=== PATIENT | female | born 1975 | race Caucasian/White ===

== ENCOUNTER 2019-11-03 10:31 | Outpatient (CLI) | payer OTHER, SELFPAY ==
--- NOTE | 2019-11-03 10:38 | US_ITS ---
WS: [id number] ULTRASOUND PELVIS TECHNIQUE: Transabdominal. CLINICAL INFORMATION: PELVIC PAIN LMP: ? : No. COMPARISON: None. FINDINGS: Uterus Orientation: Anteverted. Size: 9.24 cm x 4.9 cm x 4.0 cm Masses: None. Cervix: Appears normal Endometrium: Small amount of fluid in the endometrial canal. Endometrium otherwise normal. Endometrium thickness: 1.3 cm. Adnexa: Complex hemorrhagic cyst right ovary. Multi- follicular ovaries bilaterally. Right ovary size: 5.5 cm x 3.0 cm x 2.5 cm. Right ovary volume: 21.4 ccm3 Left ovary size: 3.7 cm x 2.0 cm x 1.5 cm. Left ovary volume: 5.7 ccm3 Free fluid: None. Other findings: None. US/US pelvic complete* [id number] IMPRESSION: 1. Small amount of fluid in the endometrium. Endometrium is otherwise normal i n appearance and measures 13 mm. 2. Hemorrhagic right ovarian cyst measuring 2.0 x 1.6 x 2.1CM. This can be fol lowed up in one to 2 menstrual cycles. 3. Multiple physiologic follicles left ovary. 4. No free fluid in the cul-de-sac.
== END 2019-11-03 10:32 | disposition home or self-care (01) ==
LOC: US 10:33
PROVIDERS: Family Provider Family Medicine; PCP Family Medicine; Visit Provider Nurse Practitioner Family
DX: R10.2 Pelvic and perineal pain (principal); N83.201 Unspecified ovarian cyst, right side
CPT/HCPCS: 76856

== ENCOUNTER 2025-01-07 15:12 | Emergency (ER) | payer OTHER, SELFPAY ==
--- OUTSIDE RECORDS SUMMARY | 2023-08-05 04:00 | XMS_ITS ---
Author Organization [facility] Address [address] [place] [address] Support Name Relationship Address , Manfred Colon Emergency Contact Unknow n Unavailable KAYE GEE Guarantor Unknown [phone] Care Team Providers Care Mill Recorder Name Role Phone Armida Hartley DO Primary Care Provider Jacky Nayak Unavailable [phone] Migration, Provider Unavailable Unavailable REASON FOR VISIT EMR-Harpreet Vital Signs Height 64.00 in 08/05/2023 Weight 150.00 lbs 08/05/2023 BMI 26 kg/m2 08/05/2023 Height-cm 162.56 cm 08/05/2023 Weight-kg 68.18 kg 08/05/2023 Encounters Encounter Location Date Provider Diagnosis Migrated_Facility 0 0 08/05/2023 Provider Migration Chronic pain syndrome G89.4 ; Other spondylosis, lumbosacral region M47.897 ; Other intervertebral disc degeneration, lumbar region M51.36 ; Radiculopathy, lumbar region M54.16 and Unspecified abnormalities of gait and mobility R26.9 Assessments Encounter Date Diagnosis (ICD Code) Assessment Notes Treatment Notes Treatment Clinical Notes Section Notes 08/05/2023 Chronic pain syndrome (ICD-10 - G89.4) 08/05/2023 Other spondylosis, lumbosacral region (ICD-10 - M47.897) 08/05/2023 Other intervertebral disc degeneration, lumbar region (ICD-10 - M51.36) 08/05/2023 Radiculopathy, lumbar region (ICD-10 - M54.16) 08/05/2023 Unspecified abnormalities of gait and mobility (ICD-10 - R26.9) Plan Of Treatment No Information Progress Notes * SANDEEP GEE:1975 ( 49 yo F)Acc No.[id number]:08/05/2023 Patient: KAYE COTTO Provider: Reece mckeonmelodie Migration :1975 A ge:47 Y S ex:Female Date:08/05/2023 Address:[address] [place] [address], [id number] Pcp:Armida Hartley DO Subjective: * Chief Complaints: * E MR-Harpreet Objective: * Vitals: H t: 64.00 in, Wt: 150.00 lbs, Wt-k.18 kg, BMI: 26 Index, Ht-cm: 162.56 cm. Assessment: * Assessment: 1. C hronic pain syndrome - G89.4 2 . O ther spondylosis, lumbosacral region - M47.897 3 . O ther intervertebral disc degeneration, lumbar region - M51.36? 4. R adiculopathy, lumbar region - M54.16 5 . U nspecified abnormalities of gait and mobility - R26.9 Billing Information: * Visit Code: 88945 Office Visit, Est Pt., Level 3. * Electronic signature of Prov ider Migration on 01/07/2025 at 03:18 PM CDT Sign off status: Pending * Provider: Reece blanton Migration Date: 08/05/2023 Generated for Karson tinajero/Bear/Carl on: 0 01/07/2025 03:18 PM CDT
--- OUTSIDE RECORDS SUMMARY | 2024-03-14 04:00 | XMS_ITS ---
Author Organization [facility] Address [address] [place] [address] Support Name Relationship Address , Manfred Colon Emergency Contact Unknow n Unavailable KAYE GEE Guarantor Unknown [phone] Care Team Providers Care Benefits Analyst Name Role Phone Armida Hartley DO Primary Care Provider Jacky Nayak Unavailable [phone] Migration, Provider Unavailable Unavailable REASON FOR VISIT EMR-Harpreet Encounters Encounter Location Date Provider Diagnosis Migrated_Facility 0 0 03/14/2024 Provider Migration Plan Of Treatment No Information Progress Notes * MARCIAL GEEOB:1975 ( 49 yo F)Acc No.[id number]:03/14/2024 Patient: Abelino JOELKAYE :1975 A ge:48 Y S ex:Female Address:[address] [place] [address], [place] [address] Subjective: * Chief Complaints: * E MR-Harpreet * * Date:
--- OUTSIDE RECORDS SUMMARY | 2024-03-15 04:00 | XMS_ITS ---
Author Organization [facility] Address [address] [place] [address] Support Name Relationship Address , Manfred Colon Emergency Contact Unknow n Unavailable KAYE GEE Guarantor Unknown [phone] Care Team Providers Care Shelf Drier Operator Name Role Phone Armida Hartley DO Primary Care Provider Jacky Nayak Unavailable [phone] Migration, Provider Unavailable Unavailable Allergies Allergen (clinical drug ingredient) Drug/Non Drug Allergy documented on EMR Reaction Allergy Type Onset Date Status aspirin Aspirin Unknown Drug Allergy Active Latex Latex Unknown Allergy Active REASON FOR VISIT EMR-[facility]reet Medications Medication SIG (Take, Route, Frequency, Duration) Notes Start Date End Date Status pyridoxine (vitamin B6) *[facility] and Interaction Alert[facility]* Active Acyclovir *Pick strength-f orm from [facility] for eRX* Active Chewable Iron *Pick strength-f orm from [facility] for eRX* Active Collagen Skin Renewal *Pick stre ngth-form from [facility] for eRX* Active ALPRAZolam *Pick strength-f orm from [facility] for eRX* Active Zinc Citrate *Pick strength-f orm from [facility] for eRX* Active Methocarbamol *Pick strength-f orm from [facility] for eRX* Active [place] 3-6-9 *Pick strength-f orm from [facility] for eRX* Active Social History Social History Additional Details Category Social Info Options Details Migrated Social History Migrated Social History Alcoholic beverages? - Yes, Applying for disability? - No, Drug or substance abuse? - No, exposure to toxins/poisonous substances at work - No, If yes, frequency of alcoholic beverages - less than 1 drink per week., Marital Status - , Nonprescription drug use? - Yes, Participation in detoxification or rehabilitation - No, Smoking - No, Working currently? - Yes Encounters Encounter Location Date Provider Diagnosis Migrated_Facility 0 0 03/15/2024 Provider Migration Plan Of Treatment No Information Progress Notes * MARCIAL GEEOB:1975 ( 49 yo F)Acc No.[id number]:03/15/2024 Patient: KAYE COTTO :1975 A ge:48 Y S ex:Female Address:[address] [place] [address], [place] [address] Subjective: * Chief Complaints: * E MR-Harpreet * Medical History: Asthma, B ronchitis, H eadache, * Surgical History: adenoid removal bilateral tubal ligation Hysterectomy tubes in ears * Family History: M igrated Family History: : Cancer, C hronic pain, D iabetes, D rug addiction, H eart disease. * Social History: M igrated Social History: M igrated Social History: Alcoholic beverages? - Yes, A pplying for disability? - No, D rug or substance abuse? - No, e xposure to toxins/poisonous substances at work - No, I f yes, frequency of alcoholic beverages - less than 1 drink per week., M arital Status - , N onprescription drug use? - Yes, P articipation in detoxification or rehabilitation - No, S moking - No, W orking currently? - Yes. * Medications: T akingChewable Iron , Notes to Pharmacist: *Pick strength-form from [facility] for eRX*Methocarbamol , Notes to Pharmacist: *Pick strength-form from [facility] for eRX*ALPRAZolam , Notes to Pharmacist: *Pick strength-form from [facility] for eRX*[place] 3-6-9 , Notes to Pharmacist: *Pick strength-form from [facility] for eRX*Zinc Citrate , Notes to Pharmacist: *Pick strength-form from [facility] for eRX*pyridoxine (vitamin B6) , Notes to Pharmacist: *Reorder from [facility] for eRx and Interaction Alerts*Collagen Skin Renewal , Notes to Pharmacist: *Pick strength-form from [facility] for eRX*Acyclovir , Notes to Pharmacist: *Pick strength-form from [facility] for eRX*Taking Chewable Iron , Notes to Pharmacist: *Pick strength-form from [facility] for eRX*Taking Methocarbamol , Notes to Pharmacist: *Pick strength-form from [facility] for eRX*Taking ALPRAZolam , Notes to Pharmacist: *Pick strength-form from [facility] for eRX*Taking [place] 3-6-9 , Notes to Pharmacist: *Pick strength-form from [facility] for eRX*Taking Zinc Citrate , Notes to Pharmacist: *Pick strength-form from [facility] for eRX*Taking pyridoxine (vitamin B6) , Notes to Pharmacist: *Reorder from [facility] for eRx and Interaction Alerts*Taking Collagen Skin Renewal , Notes to Pharmacist: *Pick strength-form from [facility] for eRX*Taking Acyclovir , Notes to Pharmacist: *Pick strength-form from [facility] for eRX* * Allergies: L atex: AllergyAspirin: Allergy * * Date:
[2025-01-07] VITALS (7 sets, daily range): BP systolic 129–158; BP diastolic 79–117; PULSE 83–102; RESP 17–18; TEMP 38; O2SAT 97–99; BMI 27.4
--- OUTSIDE RECORDS SUMMARY | 2025-01-07 15:17 | XMS_ITS | Encounter Summary ---
Author Organization [facility] Address [address] [place] [address] Care Team Providers Care Kindergarten Tutor Name Role Phone Armida Hartley DO Primary Care Provider [phone] Reason for Visit * Reason Comments Provider Call Encounter Details Date Type Department Care Team (Late st Contact Info) Description 01/04/2025 Telephone [facility] [place] [address] [place] [phone] NaeemArmida asif DO [address] [place] [address] Provider Call Social History Tobacco Use Types Packs/Day Years Used Date Smoking Tobacco: Never Passive Smoke Exposure: Never Smokeless Tobacco: Never Alcohol Use Standard Drinks/Week Comments Yes 0 (1 standard drink = 0.6 oz pur e alcohol) once in awhile Comments No Sex and Gender Information Value Date Recorded Sex Assigned at Not on file Legal Sex Female 1:11 PM CDT Gender Identity Not on file Sexual Orientation Not on file documented as of this encounter Miscellaneous Notes * Telephone Encounter - Peterson Bennett - 01/05/2025 9:07 AM CDT Copied from [facility] #[id number]. Topic: [id number] Call >> Jan 05, 2025 9:06 AM Peterson Garces wrote: Caller is requesting to speak with Clinical Care Team. Caller Name: Karthik mckeon/ [facility] (Other) Callback Number: [phone] Is the caller a Physician, Nurse Practitioner or Physician Electrical Assembly Technician? No Call Notes: Daneer states that they have tried reaching out to the patient regarding an MRI Cervical Spine and have been unable to reach her. He wanted to verify with the care team if anyone has beenable to reach her regarding this. Is this addressing an immediate patient care need? No * Telephone Encounter - Kat Marcum LPN - 01/05/2025 8:25 AM CDT Faxed. Kat Marcum LPN, 01/05/2025 8:26 AM * Telephone Encounter - Danny Barclay - 01/04/2025 10:48 AM CDT Copied from [facility] #[id number]. Topic: [id number] Call >> Jan 04, 2025 10:47 AM Danny Mena wrote: Caller is requesting to speak with Clinical Care Team. Caller Name: karthik- [facility] Callback Number: [phone] Is the caller a Physician, Nurse Practitioner or Physician Electrical Assembly Technician? No Call Notes: needing MRI of spine without contrast- can we fax this order to [phone] Is this addressing an immediate patient care need? No documented in this encounter Plan of Treatment Upcoming Encounters Date Type Department Care Team (Late st Contact Info) Description 06/08/2025 8:40 AM SOCCER COMMENTATOR Office Visit [facility] [address] [place] [address] Armida Hartley, DO [address] [place] [address] documented as of this encounter Visit Diagnoses Not on filedocumented in this encounter Additional Health Concerns Assessment Noted Time PHQ-9 Depression Total Score: 1 06/12/19 25 11:00 AM SOCCER COMMENTATOR documented as of this encounter Care Teams Kindergarten Tutor Relationship Specialty Start Date End Date Armida Hartley DO [address] [place] [address] PCP - General Family Practice 10/10/23 documented as of this encounter
--- OUTSIDE RECORDS SUMMARY | 2025-01-07 15:17 | XMS_ITS | Encounter Summary ---
Author Organization [facility] Address [address] [place] [address] Care Team Providers Care Automobile Wrecker Name Role Phone Armida Hartley DO Primary Care Provider [phone] Encounter Details Date Type Department Care Team (Late Contact Info) Description 12/21/2024 Results Follow-Up [facility] [address] [facility] [place] [address] August, SALES ASSOCIATE FISHING [address] [facility] [place] [address] XR CERVICAL SPINE 4 OR 5 VIEWS Social History Tobacco Use Types Packs/Day Years [...] on file documented as of this encounter Plan of Treatment Upcoming Encounters Date Type Department Care Team (Late st Contact Info) Description 06/08/2025 8:40 AM ENDOCRINOLOGY NURSE Office Visit [facility] [address] [facility] [place] [address] Armida Hartley DO [address] [facility] [place] [address] documented as of this encounter Visit Diagnoses Not on filedocumented in this encounter Additional Health Concerns Assessment Noted Time PHQ-9 Depression Total Score: 1 06/12/19 25 11:00 AM ENDOCRINOLOGY NURSE documented as of this encounter Care Teams Automobile Wrecker Relationship Specialty Start Date End Date Armida Hartley DO [address] [place] [address] PCP - General Family Practice 10/10/23 documented as of this encounter
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
--- OUTSIDE RECORDS SUMMARY | 2025-01-07 15:18 | XMS_ITS | Patient Health Record ---
Author Organization [facility] Address [address] [place] [address] Support Name Relationship Address , Manfred Colon Emergency Contact Unknow n Unavailable KAYE GEE Guarantor Unknown [phone] Care Team Providers Care Harnessmaker Name Role Phone Naeem Armida ENGLE Primary Care Provider Jacky Nayak Unavailable [phone] Migration, Provider Unavailable Unavailable Allergies Allergen (clinical drug ingredient) Drug/Non Drug Allergy documented on EMR Reaction Allergy Type Onset Date Status aspirin Aspirin Unknown Drug Allergy Active Latex Latex Unknown Allergy Active Reason For Referral No Information Medications Medication SIG (Take, Route, Frequency, Duration) Notes Start Date End Date Status pyridoxine (vitamin B6) *Reorder from [employer] for eRx and Interaction Alerts* Active B Complex Unknown Collagen Unknown Collagen Skin Renewal *Pick strength-form from [employer] for eRX* Active Iron Unknown [place] 3 Unknown Silica Unknown Turmeric Curcumin Un known ALPRAZolam *Pick strength-form from [facility] for eRX* Active Zinc Unknown Zinc Citrate *Pick strength-form from [facility] for eRX* Active Methocarbamol *Pick strength-form from [facility] for eRX* Active Acyclovir *Pick strength-form from [facility] for eRX* Active Chewable Iron *Pick strength-form from [facility] for eRX* Active [place] 3-6-9 *Pick strength-form from [employer] for eRX* Active Social History Tobacco Use: Social History Observation Description Date Details (start date - stop date) Never Smoker NA - NA Social History Drugs/Alcohol: Social Info Question Answer Notes Alcohol Screen (Audit-C) Did you have a drink containing alcohol in the past year? Yes How often did you have a drink containing alcohol in the past year? Monthly or less (1 point) Points 1 Interpretation Negative Tobacco Use: Social Info Question Answer Notes xTobacco Use/Smoking Are you a nonsmoker Additional Details Category Social Info Options Details Drugs/Alcohol: Do you smoke marijuana? Had medical marijuana card Migrated Social History Migrated Social History Alcoholic [...] Smoking - No, Working currently? 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) Active confirmed Encounters Encounter Location Date Provider Diagnosis Migrated_Facility 0 0 03/14/2024 Provider Migration Migrated_Facility 0 0 03/15/2024 Provider Migration Plan Of Treatment Pending Test Test Name Order Date MRI Lumbar Spine w/o [id number] 04/19/20 MRI Lumbar Spine w/o [id number] 05/02/20 Schedule Confirmation 05/02/2023 Schedule Confirmation 05/02/2023 Insurance Providers Payer Name Payer Address Payer Phone Subscriber Number Group Number Insured Name Patient Relationship to Insured Coverage Start Date Coverage End Date [employer] [address] [place] [address] [id number] Manfred Damico Spouse - patient is the spouse of the insured [employer] [address] [place] [address] [id number] Manfred Damico Spouse - patient is the spouse of the insured Medical (General) History Medical History History ICD Code whooping cough back trouble hemorrhoids asthma Surgical History Surgery Date(Month/Year) tonsillectomy and adenoidectomy tubal ligation hysterectomy and bladder adenoid removal bilateral tubal ligation Hysterectomy tubes in ears Hospitalization History Reason Date(Month/Year) see surgical hx
--- NOTE | 2025-01-07 19:16 | ED_ITS ---
HPI - Nausea/Vomiting/Diarrhea 2 General: Chief complaint: Nausea/Vomiting/Diarrhea Stated complaint: Fever N/V/D Migrane Time Seen by Provider: 01/07/25 18:50 History of Present Illness: 49-yo F with no significant past medical history reports nausea, vomiting, watery diarrhea, chills, and headache beginning Saturday after consuming Bengali food and boba tea on Saturday in [place]. [place]. Initial temp in triage 100.4 ?F with HR 102. Vomiting has subsided but nausea persists, especially with food smells; still experiencing watery diarrhea without blood. Denies dysuria, hematuria, or urinary discomfort. Able to keep fluids down and notes frequent urination, denying perceived dehydration. No cough, upper respiratory infection symptoms, or ill contacts at home. Took OTC acetaminophen and ibuprofen with minimal relief; no prescription anti- emetics prior to arrival. Poor sleep since onset. Related Data Previous Rx's ?Medication ?Instructions ?Recorded dicyclomine 20 mg tablet 20 mg PO TID PRN abdominal p ain 01/04/25 #20 tabs ondansetron 8 mg disintegrating 8 mg PO Q8H PRN nausea and 01/04/25 tablet vomiting #20 tabs ondansetron 4 mg disintegrating 4 mg PO Q8H PRN nausea and 01/07/25 tablet vomiting 5 days #30 tabs Allergies Allergy/AdvReac Type Severity Reaction Status Date / Time aspirin Allergy Unknown Verified 01/04/25 10:51 PFSH ED 2 PFSH: Family History (Updated 12/23/24 @ 08:16 by Ana Lamar CMA) Denies family history of Colon cancer Ovarian cancer Diabetes Heart disease Breast cancer Hypertension Uterine cancer Thyroid disease Stroke Social History Smoking and tobacco/nicotine status: former use of tobacco/nicotine Physical Exam 2 Const: COMMON NORMALS: no acute distress, patient oriented x3 and alert HENMT: COMMON NORMALS: normocephalic and atraumatic HEAD & SCALP: n ormocephalic and atraumatic Eye: COMMON NORMALS: Equal, round and reactive pupils present, EOMs intact bilaterally and no scleral icterus PUPIL: Yes Equal, round and reactive pupils present Resp: COMMON NORMALS: normal respiratory effort and No retractions Cardio: COMMON NORMALS: regular rate, regular rhythm and No murmurs present (Cardio) RATE: regular rate RHYTHM: regular rhythm GI: COMMON NORMALS: Normal to inspection, nondistended, normoactive bowel sounds present, Soft to palpation and non-tender PALPATION: Yes Soft to palpation Neuro: COMMON NORMALS: patient oriented x3 SENSORIUM/ORIENTATION: Yes alert Skin: COMMON NORMALS: no rashes or lesions noted GENERAL SKIN EXAM: no rashes or lesions noted Course 2 Vital Signs: Vital signs: Vital Signs Temperature 100.4 F H 01/07/25 15:25 Pulse Rate 79 01/08/25 00:08 Respiratory Rate 18 01/07/25 21:36 Blood Pressure 150/95 01/08/25 00:08 Pulse Oximetry 98 01/08/25 00:08 Oxygen Delivery Me thod Room Air 01/07/25 15:25 MDM - Nausea/Vomiting/Diarrhea Medical Decision Making Pt with 3-day course of nausea, vomiting, watery diarrhea, chills, and headache after possible food exposure; currently tolerating fluids but highly nauseated with smells. Temp 100.4 ?F and HR 102 noted. Exam shows soft, non-tender abdomen, clear lungs, and regular heart sounds. Likely viral gastroenteritis given symptom cluster and absence of blood in stool. Bacterial gastroenteritis less likely; UTI and URI considered unlikely due to lack of dysuria or respiratory symptoms. IV Lactated Ringer?s, IV Zofran, and IV Toradol ordered; CBC and CMP to be drawn with IV start. Plan for PO Zofran prescription at discharge once symptoms improve and labs are reassuring. Lab Data 01/07/25 19:22 01/07/25 19: Laboratory Results WBC 9.95 10^3/uL (3.29-11.43) 01/07/25 19: RBC 4.77 10^6/uL (3.85-5.65) 01/07/25 19: Hgb 13.70 g/dL (11.27-16.99) 01/07/25 19: Hct 39.8 % (36-47) 01/07/25 19: MCV 83.4 fl (85-98) L 01/07/25: MCH 28.7 pg (27-33) 01/07/25: MCHC 34.4 g/dL (30-55) 01/07/25 19: RDW 14.2 % (12.1-15.1) 01/07/25 19: Plt Count 211 10^3/cmm (157-399) 01/07/25 19:22 MPV 10.1 fL (7.4-10.4) 01/07/25 19:22 Neut % (Auto) 75.1 % 01/07/25 19:22 Lymph % (Auto) 9.3 % 01/07/25 19:22 [place] % (Auto) 14.2 % 01/07/25 19:22 Eos % (Auto) 0.6 % 01/07/25 19: Baso % (Auto) 0.3 % 01/07/25: Neut # (Auto) 7.47 10^3/uL (1.8-7.7) 01/07/25 19:22 Lymph # (Auto) 0.9 10^3/uL (0.8-4.8) 01/07/25 19:22 [place] # (Auto) 1.4 10^3/uL (0.2-0.9) H 01/07/25 19:22 Eos # (Auto) 0.1 10^3/uL (0.0-0.8) 01/07/25 19: Baso # (Auto) 0.0 10^3/uL (0.0-0.1) 01/07/25 19: Nucleated RBC % (auto) 0 % 01/07/25: Nucleated RBCs # 0.0 /100WBC 01/07/25 19:22 Sodium 137 mmol/L (136-145) 01/07/25 19:22 Potassium 3.0 mmol/L (3.5-5.1) L 01/07/25 19:22 Chloride 99 mmol/L (98-107) 01/07/25 19:22 Carbon Dioxide 22 mmol/L (22-29) 01/07/25 19:22 Anion Gap 19.0 (5-19) 01/07/25 19:22 BUN 8 mg/dL (6-20) 01/07/25 19: Creatinine 0.7 mg/dL (0.5-0.9) 01/07/25 19:22 GFR Calculation 89.3 mL/min (90-130) L 01/07/25 19:22 Glucose 96 mg/dL (65-115) 01/07/25 19:22 Calculated Osmolality 282 mOsm/kg (285-295) L 01/07/25 19:22 Calcium 8.7 mg/dL (8.5-10.5) 01/07/25 19:22 Total Bilirubin 1.3 mg/dL (0.15-1.2) H 01/07/25 19:22 AST 35 U/L (0-32) H 01/07/25 19:22 ALT 42 U/L (0-33) H 01/07/25 19:22 Alkaline Phosphatase 194 U/L (35-105) H 01/07/25 19:22 Total Protein 7.2 g/dL (6.6-8.7) 01/07/25 19:22 Albumin 3.9 g/dL (3.5-5.2) 01/07/25 19:22 Globulin 3.3 g/dL (1.3-4.6) 01/07/25 19:22 All radiology interpretation(s) finalized by discharge Discharge Plan Discharge Patient Disposition: Home Clinical Impression: Nausea vomiting and diarrhea, Headache Condition: Stable Prescriptions: New ondansetron 4 mg tablet,disintegrating 4 mg PO Q8H PRN (Reason: nausea and vomiting) 5 Days Qty: 30 0RF No Action ondansetron 8 mg tablet,disintegrating 8 mg PO Q8H PRN (Reason: nausea and vomiting) Qty: 20 0RF dicyclomine 20 mg tablet 20 mg PO TID PRN (Reason: abdominal pain) Qty: 20 0RF Discharge Orders: Discharge ED (Routine); Ordered 01/07/25 Ordered By: Aiden Bob Referrals: Denise Collazo MD [Family Provider, Family Practice] Armida Hartley DO [Primary Care Provider, Family Practice] Discharge Diet: Advance as tolerated Discharge Activity: Increase activity as tolerated Patient Instructions: Gastroenteritis (ED), Patient Portal & Gabriela Instructions Print Language: Burundian Coding Level of Care Code ED 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
[2025-01-07] MEDS: acetaminophen 1,000 MG/100 ML PIGGYBACK 400 MG IV (19:34)
[2025-01-07 19:36] LABS: Hematocrit 39.8 % (36-47); Hemoglobin 13.70 g/dL (11.27-16.99); Mean Corpuscular HGB Conc 34.4 g/dL (30-55); Mean Corpuscular Hemoglobin 28.7 pg (27-33); Mean Corpuscular Volume 83.4 fl (85-98); Nucleated Red Blood Cells % 0 %; Platelet Count 211 10^3/cmm (157-399); Red Blood Count 4.77 10^6/uL (3.85-5.65); White Blood Count 9.95 10^3/uL (3.29-11.43)
[2025-01-07 19:45] LABS: Alanine Aminotransferase 42 U/L (0-33); Albumin Level 3.9 g/dL (3.5-5.2); Alkaline Phosphatase 194 U/L (35-105); Anion Gap 19.0 (5-19); Aspartate Amino Transferase 35 U/L (0-32); Blood Urea Nitrogen 8 mg/dL (6-20); Calcium 8.7 mg/dL (8.5-10.5); Carbon Dioxide 22 mmol/L (22-29); Chloride 99 mmol/L (98-107); Creatinine Clr Calc Pharmacy 95.9657; Globulin 3.3 g/dL (1.3-4.6); Glucose 96 mg/dL (65-115); Osmolality Calculated 282 mOsm/kg (285-295); Potassium 3.0 mmol/L (3.5-5.1); Sodium 137 mmol/L (136-145); Total Protein 7.2 g/dL (6.6-8.7)
[2025-01-08] VITALS: BP 150/95; PULSE 79; O2SAT 98
[2025-01-08 00:08] VITALS: BP 150/95; PULSE 79; O2SAT 98
== END 2025-01-08 00:11 | disposition home or self-care (01) ==
PROVIDERS: Emergency Provider Student in an Organized Health Care Education/Training Program; Family Provider Family Medicine; PCP Family Medicine
DX: R11.2 Nausea with vomiting, unspecified (principal); R19.7 Diarrhea, unspecified; R51.9 Headache, unspecified; Z87.891 Personal history of nicotine dependence
CPT/HCPCS: 36415; 80053; 85025; 96365; 96375; 99284; J0131; J1885; J7030